=== PATIENT | female | born 1950 | race Caucasian/White ===

== ENCOUNTER 2017-04-09 16:19 | Emergency (ER) | payer OTHER ==
[~2017-04-09] VITALS: Ht 157.5 cm; Wt 65.8 kg
[2017-04-09] MEDS ORDERED: CLEOCIN300 MG PO (22:12)
[2017-04-09] MEDS ORDERED: PERCOCET 5/31 TABLET PO (22:12)
[2017-04-09 22:19] VITALS: BP 133/84
== END 2017-04-09 22:40 | disposition home or self-care (01) ==
LOC: EME 16:19 → RME 16:19
PROC: 0H98XZZ Drainage of Buttock Skin, External Approach (ICD-10-PCS; principal; 2017-04-09)
DX: L02.31 Cutaneous abscess of buttock (principal); R00.0 Tachycardia, unspecified
CPT/HCPCS: 87070; 87075; 87205; 99281; 99284; J3010